=== PATIENT | male | born 1990 | race Caucasian/White ===

== ENCOUNTER → 2020-11-17 | Outpatient (REF) | payer BC | LOC: M LAB REF 18:28 | PROVIDERS: ATTEND Surgery | DX: L72.0 Epidermal cyst (principal) ==

== ENCOUNTER 2020-12-10 14:40 | Emergency (ER) | payer BC ==
[~2020-12-10] VITALS: Ht 182.9 cm; Wt 111.0 kg
--- OUTSIDE RECORDS SUMMARY | 2020-12-10 14:45 | CCD ---
Author Author [facility] Organization [facility] Address Unknown Phone Unavailable Care Team Providers Care Coil Builder Name Role Phone of [place], Medicine Occupation Unavailable Unavailable Mon, Maureen Palma PA Unavailable Unavailable Mon, Maureen Palma PA Unavailable Unavailable Mon, Maureen Palma PA Unavailable Unavailable Mon, Maureen Lopezlyn PA Unavailable Unavailable Mon, Maureen Lopezlyn PA Unavailable Unavailable Mon, Maureen Lopezlyn PA Unavailable Unavailable Mon, Maureen Lopezlyn PA Unavailable Unavailable Mon, Maureen Lopezlyn PA Unavailable Unavailable Mon, Maureen Minerva PA Unavailable Unavailable Mon, Maureen Minerva PA Unavailable Unavailable Re-disclosure Warning The records that you are about to access may contain information from federally-assisted alcohol or drug abuse programs. If such information is present, then the following federally mandated warning applies: This information has been disclosed to you from records protected by federal confidentiality rules (42 CFR part 2). The federal rules prohibit you from making any further disclosure of this information unless further disclosure is expressly permitted by the written consent of the person to whom it pertains or as otherwise permitted by 42 CFR part 2. A general authorization for the release of medical or other information is NOT sufficient for this purpose. The Federal rules restrict any use of the information to criminally investigate or prosecute any alcohol or drug abuse patient.The records that you are about to access may contain highly sensitive health information, the redisclosure of which is protected by Article 27-F of the [facility] Public Health law. If you continue you may have access to information: Regarding HIV / AIDS; Provided by facilities licensed or operated by the [facility] Office of Mental Health; or Provided by the [facility] Office for People With Developmental Disabilities. If such information is present, then the following [facility] mandated warning applies: This information has been disclosed to you from confidential records which are protected by state law. State law prohibits you from making any further disclosure of this information without the specific written consent of the person to whom it pertains, or as otherwise permitted by law. Any unauthorized further disclosure in violation of state law may result in a fine or snf sentence or both. A general authorization for the release of medical or other information is NOT sufficient authorization for further disc losure. Allergies and Adverse Reactions Type Description Substance Reaction Status Data Source(s ) Drug allergy No Known Drug Allergies No Known Drug Allergies [facility] Encounters Encounter Providers Location Date Indications Data Source(s ) [facility] [address] [address] 11/07/2019 12:00:00 AM EST eCW1 ([facility]) Outpatient Attender: Minerva Mon PAReferrer: Occupatio n of [facility] 10/18/2019 09:39:00 AM EST - 10/18/2019 10:00:00 AM EST [facility] Outpatient Attender: Occupation of [employer] 10/18/2019 1 2:00:00 AM EST PHYS,NON DOT 5, FOCUS [facility] PHYS,NON DOT 5, FOCUS Insurance Providers Payer name Policy type / Coverage type Policy ID Covered libertarian ID Covered libertarian's relationship to vick Policy Vick Plan Information [employer]-BS PPO 306 [id number] SP [id number] [facility] 020/520 [id number] FA2 [id number] Results ID Date Data Source [id number] 10/18/2019 09:40:00 AM [facility] Patient Name: KEVIN QUEZADA : 1990 Sex: M Pt Unit #: [id number] Location:AMB.EXT Provider: Visit Date/Time: 10/18/19 Primary Insurance: Self Pay Secondary Insurance: Intake Vital Signs 10/18/19 09:41 Current Height 6 ft 5 in Current Weight 223 lb BMI 26.4 BP 122/70 Blood Pressure Location Lt brachial Position Sitting Respiration 16 Pulse 80 Pulse Strength Normal Pulse Source Palpation Temp 98.1 F Temp Source Oral Pulse Oximetry (%) 97 Oxygen Delivery Method room air Intake Visit Reasons: Occ Med physical Nurse 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 Pretest education received and acknowledged SBIRT Annual Questionnaire Are you currently in recovery for alcohol or substance use?: No PFSH Social History Smoking Status: Never smoker HPI Additional HPI HPI Details: pre employ PE, no concerns, see scanned, generally well young man Review of Systems Const All systems reviewed are unremarkable except as noted in HPI and below Details: see scanned Exam Const General: cooperative, healthy appearing, comfortable, no acute distress, well developed and well groomed Nutritional Appearance: average body habitus Orientation: alert, awake and oriented x3 Other: see scanned Assessment Plan Assessment Plan (1) Encounter for pre-employment examination: Code(s): Z02.1 - Encounter for pre-employment examination Additional Comments Additional Comments: cleared for employment, see scanned, Informed patient these exams are not intended to replace annual wellness/primary care. Should follow with PCP for that purpose. Electronically Signed By: <Electronically signed by Minerva WHITFIELD> Date/Time Signed: 10/18/19 0959 Name Value Range Interpretation Code Description Data [place] rce(s) Supporting Document(s) Procedure Social History Code Duration Value Status Description Data Source(s ) 10/18/2019 09:44:41 AM EST Never smoker completed Never s [facility] Smoking 10/18/2019 09:44:00 AM EST Never smoker completed Never s [facility] Vital Signs ID Date Data Source UNK Name Value Range Interpretation Code Description Data Source(s) Diastolic blood pressure 77 mm[Hg] 77 mm[Hg] eCW1 ([facility]) Systolic blood pressure 134 mm[Hg] 134 mm[Hg] e CW1 ([facility]) Body temperature 99.0 [degF] 99.0 [degF] eCW1 ( [facility]) Respiratory rate 18 /min 18 /min eCW1 ([facility]) Heart rate 64 /min 64 /min eCW1 ([facility]) Body mass index (BMI) [Ratio] 26.56 kg/m2 26.56 kg/m2 eCW1 ([facility]) Body height 77 [in_us] 77 [in_us] eCW1 ([facility]) Body weight Measured 224 [lb_av] 224 [lb_av] eC W1 ([facility])
[2020-12-10] MEDS ORDERED: FLUO10CA16 (14:48)
[2020-12-10] MEDS ORDERED: KETOROLAC 30 MG/ML 1ML VIAL IV ONE (16:30)
[2020-12-10] MEDS ORDERED: ONDANSETRON 4MG/2ML VIAL IV ONE (16:30)
[2020-12-10] MEDS ORDERED: NS 1,000 ML IV ONE (16:30)
--- NOTE | 2020-12-10 16:44 | REP ---
INDICATION: syncope, seizure like activity. COMPARISON: None. TECHNIQUE: Helical scanning is acquired. 5 mm axial images were reformatted. Coronal MPR images were generated. FINDINGS: Bone window settings demonstrate an intact bony calvarium. There is no evidence of skull fracture or incidental bony calvarial lesion. The visualized paranasal sinuses appear clear. No intraorbital abnormality is seen. On soft tissue window setting images; the lateral, third, and fourth ventricles are normal in size and position. Rangel-white differentiation pattern is normal above and below the tentorium. There are is no evidence of intracranial hemorrhage. No mass, edema, infarction, or midline shift is seen. No extra-axial fluid collection is appreciated. IMPRESSION: Negative noncontrast head CT. <Electronically signed by Austin Trujillo > 12/10/20 1640
--- NOTE | 2020-12-10 16:52 | REP ---
INDICATION: SOB, syncope. COMPARISON: No comparison chest x-ray. TECHNIQUE: Two views.. FINDINGS: The lungs are well inflated and free of infiltrate. The pleural angles are sharp. The heart size is normal. Pulmonary vasculature is not increased. No significant bony abnormality is seen. IMPRESSION: Negative chest x-ray. <Electronically signed by Austin Trujillo > 12/10/20 8216
--- OUTSIDE RECORDS SUMMARY | 2020-12-10 16:58 | CCD ---
Author Author [facility] Organization [facility] Address Unknown Phone Unavailable Care Team Providers Care Activity Specialist Name Role Phone of [place], Medicine Occupation Unavailable Unavailable Mon, Maureen Palma PA Unavailable Unavailable Mon, Maureen Benitezn PA Unavailable Unavailable Mon, Maureen Minerva PA [...] is protected by Article 27-F of the [facility] Public Health law. If you continue you may have access to information: Regarding HIV / AIDS; Provided by facilities licensed or operated by the [facility] Office of Mental Health; or Provided by the [facility] Office for People With Developmental Disabilities. If such information is present, then the following [facility] mandated warning applies: This information has been [...] law may result in a fine or detention sentence or both. A general authorization for the release of medical or other information is NOT sufficient authorization for further disc losure. Allergies and Adverse Reactions Type Description Substance Reaction Status Data Source(s ) Drug allergy No Known Drug Allergies No Known Drug Allergies [facility] Encounters Encounter Providers Location Date Indications Data Source(s ) [address] [address] 11/07/2019 12:00:00 AM EST eCW1 ([facility]) Outpatient Attender: Minerva Haydenerrer: Occupatio n of [facility] 10/18/2019 09:39:00 AM EST - 10/18/2019 10:00:00 AM EST [facility] Outpatient Attender: Occupation of [employer] 10/18/2019 1 2:00:00 AM EST PHYS,NON DOT 5, FOCUS [facility] PHYS,NON DOT 5, FOCUS Insurance Providers Payer name Policy type / Coverage type Policy ID Covered green party ID Covered green party's relationship to vick Policy Vick Plan Information [employer]-BS PPO 306 [id number] SP [id number] [facility] 020/520 [id number] FA2 [id number] Results ID Date Data Source [id number] 10/18/2019 09:40:00 AM [facility] Patient Name: KEVIN QUEZADA : 1990 Sex: M Pt Unit #: [id number] Location:AMB.EXT Provider: Visit Date/Time: 10/18/19 Primary Insurance: [...] Med physical Nurse Note: PE for employment [employer] Required: No Is patient in pain?: No [...] AM EST Never smoker completed Never s [facility] Smoking 10/18/2019 09:44:00 AM EST Never smoker completed Never s [facility] Vital Signs ID Date Data Source UNK Name Value Range Interpretation Code Description Data Source(s) Diastolic blood pressure 77 mm[Hg] 77 mm[Hg] eCW1 ([facility]) Systolic blood pressure 134 mm[Hg] 134 mm[Hg] e CW1 ([facility]) Body temperature 99.0 [degF] 99.0 [degF] eCW1 ( [facility]) Respiratory rate 18 /min 18 /min eCW1 ([facility]) Heart rate 64 /min 64 /min eCW1 ([facility]) Body mass index (BMI) [Ratio] 26.56 kg/m2 26.56 kg/m2 eCW1 ([facility]) Body height 77 [in_us] 77 [in_us] eCW1 ([facility]) Body weight Measured 224 [lb_av] 224 [lb_av] eC W1 ([facility])
[2020-12-10 17:59] LABS: BASO % 0.4 % (0.0-1.0); EOS # 0.1 10^3/uL (0.0-0.5); EOS % 0.9 % (0.0-3.0); HEMATOCRIT 45.6 % (42.0-52.0); HEMOGLOBIN 14.9 g/dl (13.5-17.5); LYMPH # 2.2 10^3/uL (1.5-5.0); LYMPH % 28.1 % (24.0-44.0); MEAN CORPUSCULAR HEMOGLOBIN 30.4 pg (27.0-33.0); MEAN CORPUSCULAR HGB CONC 32.7 g/dl (32.0-36.5); MEAN CORPUSCULAR VOLUME 93.1 fl (80.0-96.0); MONO # 0.5 10^3/uL (0.0-0.8); MONO % 6.6 % (2.0-8.0); NEUTROPHILS % 63.5 % (36.0-66.0); PLATELET COUNT, AUTOMATED 232 10^3/uL (150-450); WHITE BLOOD COUNT 7.9 10^3/uL (4.0-10.0)
[2020-12-10 18:12] LABS: INR 0.96
[2020-12-10 18:13] LABS: PARTIAL THROMBOPLASTIN TIME 31.7 SECONDS (24.2-38.5)
[2020-12-10 18:15] LABS: D-DIMER QUANT 408.15 ng/ml (<500)
[2020-12-10 18:31] LABS: CK-MB VALUE MASS 2.1 NG/ML (<3.6); CPK CREATINE PHOSPHOKINASE 207 U/L (39-308); FREE THYROXINE INDEX 2.5 % (1.4-3.8); MB/CK RELATIVE INDEX 1.01 (< OR =4); T UPTAKE 28 % (33-40); THYROXINE (T4) 8.8 UG/DL (4.5-12.0); TROPONIN I < 0.02 NG/ML (< 0.10)
[2020-12-10] MEDS ORDERED: ONDA4TAB6 PO (19:07)
[2020-12-10 19:18] VITALS: BP 119/66
== END 2020-12-10 19:39 | disposition home or self-care (01) ==
LOC: M ED 14:40
DX: R55 Syncope and collapse (principal); R56.9 Unspecified convulsions; R11.0 Nausea
CPT/HCPCS: 70450; 71046; 80047; 82375; 82550; 82553; 84436; 84443; 84479; 84484; 85025; 85379; 85610; 85730; 87798; 96361; 96374; 96375; 99284; J1885; J2405

== ENCOUNTER → 2021-02-16 | Outpatient (CLI) | payer BC ==
[~2021-02-16] MED LIST: FLUO10CA16; ONDA4TAB6 PO
[2021-02-16 13:18] LABS: BASO % 0.3 % (0.0-1.0); EOS % 0.8 % (0.0-3.0); HEMOGLOBIN 15.2 g/dl (13.5-17.5); LYMPH # 1.7 10^3/uL (1.5-5.0); LYMPH % 47.4 % (24.0-44.0); MEAN CORPUSCULAR HEMOGLOBIN 31.1 pg (27.0-33.0); MEAN CORPUSCULAR VOLUME 94.1 fl (80.0-96.0); MONO # 0.5 10^3/uL (0.0-0.8); MONO % 12.5 % (2.0-8.0); NEUTROPHILS # 1.4 10^3/uL (1.5-8.5); NEUTROPHILS % 38.7 % (36.0-66.0); PLATELET COUNT, AUTOMATED 193 10^3/uL (150-450); RED BLOOD COUNT 4.89 10^6/uL (4.30-6.10); WHITE BLOOD COUNT 3.6 10^3/uL (4.0-10.0)
--- NOTE | 2021-02-16 13:47 | REP ---
INDICATION: GENERALIZED ABDOMINAL PAIN / LABS 1ST. COMPARISON: None. TECHNIQUE: Two AP views abdomen and pelvis. FINDINGS: The bowel gas pattern is normal. No dilated bowel loops are seen. There is no radiographic evidence of bowel obstruction. No abnormal calcifications are visualized. The visualized osseous structures are unremarkable except for slight curvature of the lumbar spine convex to the left. IMPRESSION: Normal bowel gas pattern. No abnormal calcifications. <Electronically signed by Steve Rangel > 02/16/21 2500
[2021-02-16 14:02] LABS: ALT/SGPT 28 U/L (12-78); AMYLASE 29 U/L (25-115); BILIRUBIN,TOTAL 0.4 MG/DL (0.2-1.0); BLOOD UREA NITROGEN 9 MG/DL (7-18); CARBON DIOXIDE LEVEL 30 MEQ/L (21-32); CHLORIDE LEVEL 104 MEQ/L (98-107); CREATININE FOR GFR 0.72 MG/DL (0.70-1.30); GLOMERULAR FILTRATION RATE > 60.0 (>60); GLUCOSE, FASTING 72 MG/DL (70-100); LIPASE 67 U/L (73-393); POTASSIUM SERUM 4.4 MEQ/L (3.5-5.1); SODIUM LEVEL 138 MEQ/L (136-145); TOTAL PROTEIN 7.1 GM/DL (6.4-8.2)
== END ==
LOC: M LAB 12:34
PROVIDERS: ATTEND Nurse Practitioner Family
DX: R10.84 Generalized abdominal pain (principal)

== ENCOUNTER 2021-05-19 08:51 | Emergency (ER) | payer BC ==
[~2021-05-19] VITALS: Ht 195.6 cm; Wt 113.8 kg
[~2021-05-19 08:51] MED LIST changes: -ALEV1TAB PO; -DICY1CAP8 PO; -FLUO10CA16; +FLUO10CA18
[2021-05-19] MEDS ORDERED: ALEV1TAB PO (09:01)
[2021-05-19] MEDS ORDERED: ONDANSETRON 4MG/2ML VIAL IV ONE (11:20)
[2021-05-19] MEDS ORDERED: KETOROLAC 30 MG/ML 1ML VIAL IV ONE (11:20)
[2021-05-19 11:51] LABS: BASO % 0.5 % (0.0-1.0); EOS % 0.7 % (0.0-3.0); HEMATOCRIT 42.5 % (42.0-52.0); HEMOGLOBIN 14.4 g/dl (13.5-17.5); LYMPH # 1.5 10^3/uL (1.5-5.0); LYMPH % 24.6 % (24.0-44.0); MEAN CORPUSCULAR HEMOGLOBIN 31.4 pg (27.0-33.0); MEAN CORPUSCULAR HGB CONC 33.9 g/dl (32.0-36.5); MEAN CORPUSCULAR VOLUME 92.8 fl (80.0-96.0); MONO # 0.5 10^3/uL (0.0-0.8); MONO % 7.6 % (2.0-8.0); NEUTROPHILS % 66.1 % (36.0-66.0); PLATELET COUNT, AUTOMATED 227 10^3/uL (150-450); RED BLOOD COUNT 4.58 10^6/uL (4.30-6.10); WHITE BLOOD COUNT 6.1 10^3/uL (4.0-10.0)
[2021-05-19] MEDS ORDERED: ISOVUE-370 76% 100ML VIAL As Ordered ONE (11:55)
[2021-05-19 12:12] LABS: BILIRUBIN,DIRECT 0.1 MG/DL (0.0-0.2); BILIRUBIN,TOTAL 0.4 MG/DL (0.2-1.0)
[2021-05-19] MEDS ORDERED: ONDA4TAB6 PO (13:57)
[2021-05-19] MEDS ORDERED: DICY1CAP8 PO (13:57)
[2021-05-19 14:07] VITALS: BP 138/71
[2021-05-21] MEDS ORDERED: ALBU8.5H INH (10:11)
== END 2021-05-19 14:09 | disposition home or self-care (01) ==
LOC: M ED 08:51
DX: K59.00 Constipation, unspecified (principal); F33.9 Major depressive disorder, recurrent, unspecified; F41.9 Anxiety disorder, unspecified; F12.20 Cannabis dependence, uncomplicated
CPT/HCPCS: 74177; 80047; 80076; 81001; 83690; 85025; 96374; 96375; 99284; J1885; J2405; Q9967

== ENCOUNTER → 2021-05-19 | Outpatient (CLI) | payer BC ==
[~2021-05-19] MED LIST changes: +ALEV1TAB PO; +DICY1CAP8 PO
--- NOTE | 2021-05-19 08:19 | REP ---
INDICATION: RUQ PAIN, NAUSEA. COMPARISON: None. TECHNIQUE: Standard grayscale right upper quadrant sonography. FINDINGS: Liver is homogeneous without focal hepatic mass or intrahepatic biliary dilatation. No hepatic calcifications or cysts. Gallbladder shows normal wall thickness and no stone, sludge or pericholecystic fluid. No tenderness on scanning. Common bile duct is 3.3 mm and unremarkable. Pancreas was also unremarkable. The right kidney measured 12.8 x 6.4 x 4.7 cm without hydronephrosis, stone or other abnormality. There is no ascites in the right upper quadrant. IMPRESSION: Negative right upper quadrant ultrasound. <Electronically signed by David Zamudio > 05/19/21 0872
== END ==
LOC: M RAD 07:08
PROVIDERS: ATTEND Nurse Practitioner Family
DX: R10.11 Right upper quadrant pain (principal); R11.0 Nausea

== ENCOUNTER → 2021-05-27 | Outpatient (CLI) | payer BC ==
[~2021-05-27] MED LIST changes: +ALBU8.5H INH; +ALEV1TAB PO; +DICY1CAP8 PO; +FLUO10CA16; -FLUO10CA18
== END ==
LOC: M LABSMTC 10:02
PROVIDERS: ATTEND Anesthesiology
DX: Z01.818 Encounter for other preprocedural examination (principal); Z20.822 Contact with and (suspected) exposure to COVID-19

== ENCOUNTER 2021-06-01 10:09 | Day surgery (SDC) | payer BC ==
[~2021-06-01] VITALS: Ht 195.6 cm; Wt 110.0 kg
[~2021-06-01 10:09] MED LIST changes: +NS 1,000 ML IV ONE
[2021-06-01] MEDS ORDERED: LIDOCAINE 2% 100MG/5ML SDV (FOR ANES.) As Ordered ONE (11:15)
[2021-06-01] MEDS ORDERED: propofoL 200 MG/20 ML VIAL As Ordered ONE (11:15)
--- NOTE | 2021-06-01 12:26 | ROOR ---
Patient Name: Rajan Easley Procedure Date: 06/01/2021 11:45 AM Date of : 1990 Age: 30 Room: [facility] Gender: Male Note Status: Finalized Procedure: Colonoscopy Indications: Abdominal pain in the left lower quadrant, Change in bowel habits, Constipation Providers: José Miguel Aguayo MD Referring MD: Matilde ROMERO Requesting Provider: Medicines: Monitored Anesthesia Care Complications: No immediate complications. Procedure: Pre-Anesthesia Assessment: - Prior to the procedure, a History and Physical was performed, and patient medications and allergies were reviewed. The patient is competent. The risks and benefits of the procedure and the sedation options and risks were discussed with the patient. All questions were answered and informed consent was obtained. Patient identification and proposed procedure were verified by the physician, the nurse and the anesthesiologist in the procedure room. Mental Status Examination: alert and oriented. Airway Examination: normal oropharyngeal airway and neck mobility. Respiratory Examination: clear to auscultation. CV Examination: normal. Prophylactic Antibiotics: The patient does not require prophylactic antibiotics. Prior Anticoagulants: The patient has taken no previous anticoagulant or antiplatelet agents. ASA Grade Assessment: I - A normal, healthy patient. After reviewing the risks and benefits, the patient was deemed in satisfactory condition to undergo the procedure. The anesthesia plan was to use monitored anesthesia care (MAC). Immediately prior to administration of medications, the patient was re-assessed for adequacy to receive sedatives. The heart rate, respiratory rate, oxygen saturations, blood pressure, adequacy of pulmonary ventilation, and response to care were monitored throughout the procedure. The physical status of the patient was re-assessed after the procedure. The Colonoscope was introduced through the anus and advanced to the terminal ileum, with identification of the appendiceal orifice and IC valve. The colonoscopy was performed without difficulty. The patient tolerated the procedure well. The quality of the bowel preparation was good. The terminal ileum, ileocecal valve, appendiceal orifice, and rectum were photographed. Scope insertion time was 2 minutes. Scope withdrawal time was 9 minutes. The total duration of the procedure was 11 minutes. Findings: The perianal and digital rectal examinations were normal. The terminal ileum appeared normal. Non-bleeding external and internal hemorrhoids were found during retroflexion. The hemorrhoids were small. No other significant abnormalities were identified in a careful examination of the remainder of the colon. Impression: - The examined portion of the ileum was normal. - Non-bleeding external and internal hemorrhoids. - No specimens collected. Recommendation: - Patient has a contact number available for emergencies. The signs and symptoms of potential delayed complications were discussed with the patient. Return to normal activities tomorrow. Written discharge instructions were provided to the patient. - High fiber diet. - Continue present medications. - Use fiber, for example Citrucel, Fibercon, Konsyl or Metamucil. - Repeat colonoscopy at age 51 for screening purposes. - Return to GI clinic if persistent symptoms or new symptoms. - Return to primary care physician. Procedure Code(s): --- Professional --- 66811, Colonoscopy, flexible; diagnostic, including collection of specimen(s) by brushing or washing, when performed (separate procedure) Diagnosis Code(s): --- Professional --- K64.8, Other hemorrhoids R10.32, Left lower quadrant pain R19.4, Change in bowel habit K59.00, Constipation, unspecified CPT copyright 2019 [employer]. All rights reserved. The codes documented in this report are preliminary and upon paper roller review may be revised to meet current compliance requirements. José Miguel Aguayo MD José Miguel Aguayo MD 06/01/2021 12:25:40 PM Electronically signed by José Miguel Aguayo MD Number of Addenda: 0 Note Initiated On: 06/01/2021 11:45 AM Estimated Blood Loss: Estimated blood loss: none.
[2021-06-01 12:30] VITALS: BP 116/81
== END 2021-06-01 12:39 | disposition home or self-care (01) ==
LOC: M OPP 10:09
PROVIDERS: ATTEND Internal Medicine Gastroenterology
DX: R10.32 Left lower quadrant pain (principal); R19.4 Change in bowel habit; K64.8 Other hemorrhoids; K21.9 Gastro-esophageal reflux disease without esophagitis; F41.9 Anxiety disorder, unspecified; F32.9 Major depressive disorder, single episode, unspecified; G43.909 Migraine, unspecified, not intractable, without status migrainosus; J45.909 Unspecified asthma, uncomplicated; Z79.899 Other long term (current) drug therapy; Z82.49 Family history of ischemic heart disease and other diseases of the circulatory system; Z83.3 Family history of diabetes mellitus; Z80.3 Family history of malignant neoplasm of breast; Z80.1 Family history of malignant neoplasm of trachea, bronchus and lung

== ENCOUNTER 2021-08-10 13:00 | Emergency (ER) | payer BC ==
[~2021-08-10] VITALS: Ht 195.6 cm; Wt 109.1 kg
[~2021-08-10 13:00] MED LIST changes: -NS 1,000 ML IV ONE
[2021-08-10 13:02] VITALS: BP 131/56
[2021-08-10 16:59] LABS: RSV AMPLIFICATION NEGATIVE (NEGATIVE)
== END 2021-08-10 18:16 | disposition left against medical advice (07) ==
LOC: M ED 13:00
DX: Z53.29 Procedure and treatment not carried out because of patient's decision for other reasons (principal)

== ENCOUNTER → 2024-05-28 | Outpatient (CLI) | payer OTHER ==
[~2024-05-28] MED LIST changes: +FLUO-290; -FLUO10CA16; +ONDA-282 PO; -ONDA4TAB6 PO
== END ==
LOC: M OUTALCOH 14:51
PROVIDERS: ATTEND Psychiatry & Neurology Psychiatry
DX: F10.10 Alcohol abuse, uncomplicated (principal); F12.10 Cannabis abuse, uncomplicated

== ENCOUNTER 2024-06-20 16:00 | Outpatient (RCR) | payer OTHER | END 2024-06-22 | LOC: M OUTALCOH 16:00 | PROVIDERS: ATTEND Psychiatry & Neurology Psychiatry | DX: F10.10 Alcohol abuse, uncomplicated (principal); F12.10 Cannabis abuse, uncomplicated ==

== ENCOUNTER 2024-07-18 16:00 | Outpatient (RCR) | payer OTHER | END 2024-07-22 | LOC: M OUTALCOH 16:00 | PROVIDERS: ATTEND Psychiatry & Neurology Psychiatry | DX: F10.10 Alcohol abuse, uncomplicated (principal); F12.10 Cannabis abuse, uncomplicated ==

== ENCOUNTER 2024-08-21 09:49 | Outpatient (RCR) | payer OTHER | END 2024-08-22 | LOC: M OUTALCOH 09:49 | PROVIDERS: ATTEND Psychiatry & Neurology Psychiatry | DX: F10.10 Alcohol abuse, uncomplicated (principal); F12.10 Cannabis abuse, uncomplicated ==

== ENCOUNTER 2024-09-02 11:10 | Emergency (ER) | payer OTHER ==
[~2024-09-02] VITALS: Ht 195.6 cm; Wt 103.6 kg
[2024-09-02 13:27] LABS: BASO % 0.3 % (0.0-1.0); EOS % 0.3 % (0.0-3.0); HEMATOCRIT 42.9 % (42.0-52.0); HEMOGLOBIN 14.5 g/dl (13.5-17.5); LYMPH % 22.5 % (24.0-44.0); MEAN CORPUSCULAR HEMOGLOBIN 32.6 pg (27.0-33.0); MEAN CORPUSCULAR HGB CONC 33.8 g/dl (32.0-36.5); MEAN CORPUSCULAR VOLUME 96.4 fl (80.0-96.0); MONO # 0.6 10^3/uL (0.0-0.8); MONO % 6.7 % (2.0-8.0); NEUTROPHILS # 6.2 10^3/uL (1.5-8.5); PLATELET COUNT, AUTOMATED 275 10^3/uL (150-450); RED BLOOD COUNT 4.45 10^6/uL (4.30-6.10); WHITE BLOOD COUNT 8.9 10^3/uL (4.0-10.0)
[2024-09-02 13:47] LABS: LIPASE 28 U/L (12-53)
[2024-09-02 13:49] LABS: ALBUMIN 3.7 G/DL (3.2-5.2); ALKALINE PHOSPHATASE 39 U/L (40-129); ALT/SGPT 24 U/L (7.0-40); AST/SGOT 18 U/L (<34); BILIRUBIN,DIRECT 0.2 MG/DL (<0.4); BILIRUBIN,TOTAL 0.6 MG/DL (0.3-1.2); BLOOD UREA NITROGEN 12 MG/DL (9-23); CALCIUM LEVEL 9.2 MG/DL (8.5-10.1); CARBON DIOXIDE LEVEL 29 MMOL/L (20-31); CHLORIDE LEVEL 105 MMOL/L (98-107); CREATININE FOR GFR 0.69 MG/DL (0.70-1.30); GLOMERULAR FILTRATION RATE > 60.0 (>60); GLUCOSE, FASTING 91 MG/DL (60-100); INR 0.94; PARTIAL THROMBOPLASTIN TIME 27.8 SECONDS (24.8-34.2); POTASSIUM SERUM 4.1 MMOL/L (3.5-5.1); PROTHROMBIN TIME 12.8 SECONDS (12.5-14.5); SODIUM LEVEL 138 MMOL/L (136-145); TOTAL PROTEIN 6.9 G/DL (5.7-8.2)
[2024-09-02] MEDS ORDERED: ISOVUE-370 76% 100ML VIAL As Ordered ONE (14:23)
[2024-09-02] MEDS ORDERED: SUCR1SS PO (16:05)
[2024-09-02] MEDS ORDERED: PANT40TA29 PO (16:05)
[2024-09-02 16:19] VITALS: BP 134/80; TEMP 98; O2SAT 99
== END 2024-09-02 16:30 | disposition home or self-care (01) ==
LOC: M ED 11:10
DX: I86.1 Scrotal varices (principal); K40.90 Unilateral inguinal hernia, without obstruction or gangrene, not specified as recurrent; K59.00 Constipation, unspecified
CPT/HCPCS: 74177; 80048; 80076; 83690; 85025; 85610; 85730; 99284; Q9967

== ENCOUNTER 2024-11-30 03:04 | Inpatient (IN) | payer OTHER ==
[~2024-11-30] VITALS: Ht 195.6 cm; Wt 101.4 kg
[~2024-11-30 03:04] MED LIST changes: +PANT40TA29 PO; +SUCR1SS PO
[2024-11-30 03:46] LABS: HEMATOCRIT 42.9 % (42.0-52.0); HEMOGLOBIN 14.4 g/dl (13.5-17.5); MEAN CORPUSCULAR HEMOGLOBIN 31.6 pg (27.0-33.0); MEAN CORPUSCULAR HGB CONC 33.6 g/dl (32.0-36.5); MEAN CORPUSCULAR VOLUME 94.3 fl (80.0-96.0); PLATELET COUNT, AUTOMATED 265 10^3/uL (150-450); RED BLOOD COUNT 4.55 10^6/uL (4.30-6.10); WHITE BLOOD COUNT 6.7 10^3/uL (4.0-10.0)
[2024-11-30 04:03] LABS: AMPHETAMINES LEVEL URINE NEGATIVE (NEGATIVE); BARBITURATES URINE NEGATIVE (NEGATIVE); BENZODIAZEPINES URINE NEGATIVE (NEGATIVE); COCAINE METABOLITE URINE NEGATIVE (NEGATIVE); METHADONE URINE NEGATIVE (NEGATIVE)
[2024-11-30 04:04] LABS: CANNABINOIDS URINE NEGATIVE (NEGATIVE); OPIATES URINE NEGATIVE (NEGATIVE); PHENCYCLIDINE URINE NEGATIVE (NEGATIVE)
[2024-11-30 04:20] LABS: ETHYL ALCOHOL (ETHANOL) 0.115 % (0.000-0.010)
[2024-11-30 04:21] LABS: ALBUMIN 4.3 G/DL (3.2-5.2); ALKALINE PHOSPHATASE 38 U/L (40-129); ALT/SGPT 22 U/L (7.0-40); AST/SGOT 24 U/L (<34); BILIRUBIN,DIRECT 0.2 MG/DL (<0.4); BILIRUBIN,TOTAL 0.5 MG/DL (0.3-1.2); BLOOD UREA NITROGEN 11 MG/DL (9-23); CALCIUM LEVEL 9.2 MG/DL (8.5-10.1); CARBON DIOXIDE LEVEL 28 MMOL/L (20-31); CHLORIDE LEVEL 105 MMOL/L (98-107); CREATININE FOR GFR 0.74 MG/DL (0.70-1.30); GLOMERULAR FILTRATION RATE > 60.0 (>60); GLUCOSE, FASTING 84 MG/DL (60-100); SALICYLATE LEVEL < 3.0 MG/DL (<30); SODIUM LEVEL 144 MMOL/L (136-145); TOTAL PROTEIN 7.3 G/DL (5.7-8.2)
[2024-11-30 04:24] LABS: THYROID STIMULATING HORMONE 2.966 uIU/ML (0.55-4.78)
[2024-11-30] MEDS: THIAMINE 100 MG TAB PO SCH (06:00)
[2024-11-30] MEDS ORDERED: LORazepam 1 MG TAB PO PRN (06:50)
[2024-11-30] MEDS ORDERED: MOM 30ML SUSPENSION UDC PO PRN (06:50)
[2024-11-30] MEDS ORDERED: LORazepam 2 MG TAB PO PRN (06:50)
[2024-11-30] MEDS ORDERED: MAALOX 30 ML SUSP *UDC PO PRN (06:50)
[2024-11-30] MEDS ORDERED: traZODone 50 MG TAB PO PRN (06:50)
[2024-11-30] MEDS ORDERED: IBUPROFEN 400MG TAB PO PRN (06:50)
[2024-11-30] MEDS ORDERED: ACETAMINOPHEN 325 MG TAB PO PRN (06:50)
[2024-11-30] MEDS ORDERED: diphenhydrAMINE 25MG CAP PO PRN (06:50)
[2024-11-30] MEDS ORDERED: HOME MED LIST COMPLETE! XX SCH (08:20)
[2024-11-30] MEDS: FOLIC ACID 1MG TAB PO SCH (08:47)
[2024-11-30] MEDS: MULTIVITAMINS/MINERALS THERAP 1 TAB PO SCH (08:47)
[2024-11-30] MEDS: NICOTINE 14 MG/24 HR TRANSDERMAL TD SCH (08:47)
[2024-11-30 09:15] VITALS: BP 117/65; TEMP 98.5; O2SAT 98
[2024-11-30 09:25] VITALS: BP 117/65
[2024-11-30 15:46] VITALS: BP 145/80; TEMP 97.3; O2SAT 100
[2024-11-30 17:26] VITALS: BP 115/80
[2024-11-30 22:10] VITALS: BP 119/68
[2024-12-01 06:52] VITALS: BP 95/60; TEMP 98; O2SAT 100
[2024-12-01 15:01] VITALS: BP 129/60; TEMP 98; O2SAT 98
[2024-12-01] MEDS: clonazePAM 1 MG TAB PO ONE (15:57)
[2024-12-01] MEDS: LURASIDONE 20 MG TAB (LATUDA) PO SCH (18:06)
[2024-12-02 06:49] VITALS: BP 122/60; TEMP 97; O2SAT 100
[2024-12-02 17:08] VITALS: BP 119/69; TEMP 97.3; O2SAT 100
[2024-12-03 06:47] VITALS: BP 102/58; TEMP 97.5; O2SAT 100
[2024-12-03] MEDS ORDERED: LATU20TA PO (08:30)
== END 2024-12-03 11:59 | disposition home or self-care (01) | DRG 751 ==
LOC: EDBD 03:04 → M ED 03:04 → M ED INP 06:46 → M PSY 09:13
PROVIDERS: ADMIT Internal Medicine; ATTEND Internal Medicine
DX: F33.1 Major depressive disorder, recurrent, moderate (principal); F41.1 Generalized anxiety disorder; F10.20 Alcohol dependence, uncomplicated; R45.851 Suicidal ideations; F17.200 Nicotine dependence, unspecified, uncomplicated; Z65.3 Problems related to other legal circumstances

== ENCOUNTER → 2025-02-17 | Outpatient (CLI) | payer OTHER ==
[~2025-02-17] MED LIST changes: +LATU20TA PO
== END ==
LOC: M OUTALCOH 07:35
PROVIDERS: ATTEND Psychiatry & Neurology Psychiatry
DX: F10.20 Alcohol dependence, uncomplicated (principal); F17.200 Nicotine dependence, unspecified, uncomplicated

== ENCOUNTER 2025-05-16 13:51 | Outpatient (RCR) | payer OTHER | END 2025-05-22 | LOC: M OUTALCOH 13:51 | PROVIDERS: ATTEND Psychiatry & Neurology Psychiatry | DX: F10.20 Alcohol dependence, uncomplicated (principal); F17.200 Nicotine dependence, unspecified, uncomplicated ==

== ENCOUNTER 2025-05-30 13:06 | Outpatient (RCR) | payer OTHER | END 2025-06-22 | LOC: M OUTALCOH 13:06 | PROVIDERS: ATTEND Psychiatry & Neurology Psychiatry | DX: F10.20 Alcohol dependence, uncomplicated (principal); F17.200 Nicotine dependence, unspecified, uncomplicated ==

== ENCOUNTER → 2025-08-15 | Outpatient (REF) | payer OTHER ==
[2025-08-15 18:24] LABS: APPEARANCE, URINE CLEAR (CLEAR); BACTERIA, URINE AUTO NEGATIVE (NEGATIVE); BILIRUBIN, URINE AUTO NEGATIVE (NEGATIVE); BLOOD, URINE BLOOD NEGATIVE (NEGATIVE); GLUCOSE, URINE (UA) AUTO NEGATIVE (NEGATIVE); KETONE, URINE AUTO NEGATIVE (NEGATIVE); LEUKOCYTE ESTERASE, URINE AUTO NEGATIVE (NEGATIVE); MUCUS, URINE SMALL (NEGATIVE); NITRITE, URINE AUTO NEGATIVE (NEGATIVE); PROTEIN, URINE AUTO NEGATIVE (NEGATIVE); RBC, URINE AUTO 0 /HPF (0-3); SPECIFIC GRAVITY URINE AUTO 1.004 (1.002-1.035); SQUAMOUS EPITHELIAL CELL UR AU 0 /HPF (0-6); UROBILINOGEN, URINE AUTO 4.0 mg/dL (0.0-2.0); WBC, URINE AUTO 0 /HPF (0-3)
[2025-08-15 18:26] LABS: Trichomonas vaginalis (AMP) NOT DETECTED (NEGATIVE)
[2025-08-15 18:49] LABS: GC DNA AMPLIFICATION NEGATIVE (NEGATIVE)
== END ==
LOC: M LAB REF 16:39
PROVIDERS: ATTEND Physician Assistant
DX: N39.0 Urinary tract infection, site not specified (principal); Z20.2 Contact with and (suspected) exposure to infections with a predominantly sexual mode of transmission